=== PATIENT | male | born 1995 | race Caucasian/White ===

== ENCOUNTER 2017-10-04 17:44 | Emergency (ER) | payer BC, OTHER ==
[2017-10-04] MEDS ORDERED: Ibuprofen 200 MG Tab PO STA (17:56)
--- NOTE | 2017-10-04 18:19 | EDM.PDOC ---
ED HPI GENERAL MEDICAL PROBLEM - General Stated Complaint: foot injury Time Seen by Provider: 10/04/17 18:18 Source of Information: Reports: Patient History Limitations: Reports: No Limitations - History of Present Illness INITIAL COMMENTS - FREE TEXT/NARRATIVE: Patient is brought into the emergency Department via family with complaint of right lower pain. Patient states that a trailer hitch dropped down on his right foot. He states he felt pain readily and swelling was noted. He denies any numbness or tingling and states he is able to ambulate on it without difficulty. Eyes any other injury or illnesses. Scraps the pain as throbbing better when he is resting it and it's immobilize Onset: Sudden Quality: Reports: Throbbing Improves with: Reports: Immobilization Worsens with: Reports: Movement Right Feet Pain Score (Numeric/FACES): 7 - Related Data Allergies Allergy/AdvReac Type Severity Reaction Status Date / Time No Known Allergies Allergy Verified 10/04/17 20:01 Home Meds: Home Meds . [No Known Home Meds] 10/04/17 [History] Review of Systems - Review of Systems Review Of Systems: See Below Constitutional: Reports: No Symptoms Eyes: Reports: No Symptoms Ears: Reports: No Symptoms Nose: Reports: No Symptoms Mouth/Throat: Reports: No Symptoms Respiratory: Reports: No Symptoms Cardiovascular: Reports: No Symptoms GI/Abdominal: Reports: No Symptoms Genitourinary: Reports: No Symptoms Musculoskeletal: Reports: Foot Pain Skin: Reports: No Symptoms Neurological: Reports: No Symptoms Psychiatric: Reports: No Symptoms ED EXAM, GENERAL - Physical Exam Exam: See Below Exam Limited By: No Limitations General Appearance: Alert, WD/WN, No Apparent Distress Neck: Normal Inspection, Supple, Non-Tender, Full Range of Motion Respiratory/Chest: No Respiratory Distress, No Accessory Muscle Use Cardiovascular: Normal Peripheral Pulses, No Edema Back Exam: Normal Inspection, Full Range of Motion Extremities: Limited Range of Motion (due to pain ), Other (bruising and swelling not on the top aspect of the right foot ) Course - Vital Signs Last Recorded V/S: Last Vital Signs Temp 36.9 C 10/04/17 17:53 Pulse 83 10/04/17 17:53 Resp 16 10/04/17 17:53 BP 143/68 H 10/04/17 17:53 Pulse Ox 99 07/06/18 17:53 - Orders/Labs/Meds Meds: Medications Discontinued Medications Generic Name Dose Route Start Last Admin Trade Name Cherie PRN Reason Stop Dose Admin Ibuprofen 600 mg 10/04/17 17:56 10/04/17 18:02 Motrin PO 10/04/17 17:57 600 mg NOW STA Administration Departure - Departure Time of Disposition: 18:30 Disposition: Home, Self-Care 01 Condition: Good Clinical Impression: Foot contusion Qualifiers: Encounter type: initial encounter Laterality: right Qualified Code(s): S90.31XA - Contusion of right foot, initial encounter - Discharge Information Instructions: Foot Contusion Referrals: Sara Puente [employer] [Primary Care Provider] - Forms: ED Department Discharge Additional Instructions: 1. ice, elevated, compress, and rest extremity 2. use ice wrap for 3-4 days to help reduce the discomfort 3. Can take ibuprofen and Tylenol as needed for pain and discomfort 4. Activity and diet as tolerated 5. No follow up is needed unless pain increases - Assessment/Plan Assessment:: 1. right foot pain Plan: 1. xray ordered in ER results reviewed with the pt 2. Leonid wrap applied for comfort 3. Ibuprofen given for discomfort 4. Ice applied to help reduce the swelling 5. Education regarding rest, ice, elevate, compression, OTC pain medications, and activity and diet.
== END 2017-10-04 18:35 | disposition home or self-care (01) ==
LOC: VM.ED 17:44
DX: S90.31XA Contusion of right foot, initial encounter (principal); W20.8XXA Other cause of strike by thrown, projected or falling object, initial encounter
CPT/HCPCS: 73630; 99283; A9270

== ENCOUNTER 2018-05-12 19:19 | Emergency (ER) | payer OTHER, BC ==
[2018-05-12] MEDS ORDERED: fentaNYL 100 MCG/2 ML SDV IVPUSH ONE (19:35)
[2018-05-12] MEDS ORDERED: Ondansetron 4 MG/2 ML SDV IVPUSH ONE (19:35)
[2018-05-12] MEDS ORDERED: Sodium Chloride 0.9% 10 ML Syringe FLUSH PRN (19:36)
[2018-05-12] MEDS ORDERED: Sodium Chloride 0.9% 1,000 ML IV ONE (19:39)
[2018-05-12] MEDS ORDERED: Iopamidol 612 MG/ML 100 ML Bottle IVPUSH ONE (19:57)
[2018-05-12 20:00] LABS: CHLORIDE,CL 103 mmol/L (98-107); SODIUM,NA 141 mmol/L (136-145)
[2018-05-12 20:01] LABS: ANION GAP 14.4 mmol/L (10-20)
[2018-05-12] MEDS ORDERED: Take Home: Acetaminophen/HYDROcodone 325-5 MG, 5 Tab Pack PO ONE (20:54)
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
--- NOTE | 2018-05-13 08:15 | CT ---
[id number] CT/CT Chest Abdomen Pelvis W IV Exam: CT Chest Abdomen Pelvis W IV Clinical Data: TRAUMA COMPARISON: NO PREVIOUS SIMILAR EXAM IS AVAILABLE FINDINGS: There is no infiltrate or pulmonary parenchymal. There is no pleural fluid collection or pneumothorax. The great vessels are intact. There is no sternal fracture. There is no thoracic or lumbar spine fracture. The liver and spleen, kidneys and adrenals, pancreas and aorta are unremarkable. The gallbladder and visceral vessels appear unremarkable. The pelvis shows no mass, free fluid, or hematoma. The appendix is thought to be unremarkable.. IMPRESSION: NO ACUTE PROCESS. Chris Fierro MD 05/13/18 0814 Thank you for allowing us to participate in the care of your patient.
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
== END 2018-05-12 21:00 | disposition home or self-care (01) ==
LOC: VM.ED 19:19
DX: S06.0X9A Concussion with loss of consciousness of unspecified duration, initial encounter (principal); S13.4XXA Sprain of ligaments of cervical spine, initial encounter; S33.5XXA Sprain of ligaments of lumbar spine, initial encounter; V53.6XXA Passenger in pick-up truck or van injured in collision with car, pick-up truck or van in traffic accident, initial encounter
CPT/HCPCS: 36415; 70450; 71045; 71260; 72125; 74177; 80053; 81001; 85025; 85610; 96361; 96374; 96375; 99285; A9270-GY; Q9967